=== PATIENT | male | born 1930 | race Hispanic/Latino ===

== ENCOUNTER 2017-04-01 15:35 | Emergency (ER) | payer MEDICARE, BC ==
[2017-04-01 15:46] VITALS: RESP 18; TEMP 97.9; BMI 23.0
--- NOTE | 2017-04-01 16:08 | ED PDOC ---
Arrival/HPI - General Chief Complaint: Chest Pain Time Seen by Provider: 04/01/17 15:49 Historian: Patient, Family (son) - History of Present Illness Narrative History of Present Illness (Text): 04/01/17 15:49 A 86 year old male, whose past medical history includes abdominal pain and dizziness, is accompanied by son and presents to the emergency department complaining of dizziness, nausea, and vomiting with associated chest discomfort. Patient states he was playing on the golf course with son earlier this afternoon and around 13:30 began experiencing symptoms. Chest discomfort began after leaving golf course and arriving home. Patient's son mentions patient has experienced this episode before but was not as worse as today. Patient denies of any fever, diarrhea, appetite changes (which he describes as fair), or any other complaints. He did not eat or drink anything abnormal that could have possibly caused symptoms. Also, patient has history of heart burn, however he states he does not believe these symptoms are related to it. Had an appendectomy in the past, and knee arthroplasty 5-6 months ago. Occupational Therapist Per Diem: Dr. Frederick Past Medical History - Provider Review Nursing Documentation Reviewed: Yes - Travel History Have you recently traveled outside [place] w/in the past 3 mons?: No - Past History Past History: Non-Contributing - Patient History Narrative Patient History: prior CABG - Infectious Disease Hx of Infectious Diseases: None - Tetanus Immunization Tetanus Immunization: Unknown - Cardiac Hx Cardiac Disorders: Yes - Neurological Hx Neurological Disorder: Yes Other/Comment: hydrocephalus - Endocrine/Metabolic Hx Endocrine Disorders: Yes Hx Diabetes Mellitus Type 2: Yes - Musculoskeletal/Rheumatological Hx Musculoskeletal Disorders: Yes Hx Degenerative Joint Disease: Yes - Psychiatric Hx Psychophysiologic Disorder: No Hx Substance Use: No - Surgical History Hx Open Heart Surgery: Yes Other/Comment: Hydrocephalus shunt Family/Social History - Physician Review Nursing Documentation Reviewed: Yes Family/Social History: No Known Family HX Smoking Status: Light Smoker < 10 Cigarettes Daily Hx Alcohol Use: Yes Frequency of alcohol use: Socially Hx Substance Use: No Allergies/Home Meds Allergies/Adverse Reactions: Allergies No Known Allergies Allergy (Verified 04/01/17 16:39) Review of Systems - Physician Review All systems were reviewed & negative as marked: Yes - Review of Systems Constitutional: absent: Fevers Cardiovascular: Chest Pain (chest discomfort associated with vomiting episodes) Gastrointestinal: Nausea, Vomiting. absent: Diarrhea, Appetite Changes Physical Exam Vital Signs Reviewed: Yes Vital Signs Temp Pulse Pulse Resp BP Pulse Ox 04/01/17 17:42 68 18 126/58 L 99 04/01/17 16:15 51 L 04/01/17 15:45 97.9 F 56 L 18 146/69 100 Temperature: Afebrile Blood Pressure: Normal Pulse: Regular Respiratory Rate: Normal Appearance: Positive for: Well-Appearing Pain Distress: None Mental Status: Positive for: Alert and Oriented X 3 Finger Stick Blood Glucose: 207 - Systems Exam Head: Present: Other (medial sternatary noted) Pupils: Present: PERRL Extroacular Muscles: Present: EOMI Conjunctiva: Present: Normal Mouth: Present: Moist Mucous Membranes Neck: Present: Normal Range of Motion Respiratory/Chest: Present: Clear to Auscultation, Good Air Exchange. No: Respiratory Distress, Accessory Muscle Use Cardiovascular: Present: Regular Rate and Rhythm, Normal S1, S2. No: Murmurs Abdomen: Present: Normal Bowel Sounds. No: Tenderness, Distention, Peritoneal Signs Back: Present: Normal Inspection Upper Extremity: Present: Normal Inspection. No: Cyanosis, Edema Lower Extremity: Present: Normal Inspection, Other (dry heeving). No: Edema Neurological: Present: GCS=15, CN II-XII Intact, Speech Normal Skin: Present: Warm, Dry, Normal Color. No: Rashes Psychiatric: Present: Alert, Oriented x 3, Normal Insight, Normal Concentration Medical Decision Making ED Course and Treatment: 04/01/17 15:52 Impression: 86 year old male with dizziness, nausea. and vomiting with associated chest discomfort. Plan: -- EKG -- Chest X-ray -- Labs -- Promethazine -- Urinalysis -- Reassess and disposition Progress Notes: 04/01/17 17:00 Reassessment Condition: Re-examined, Improved - Lab Interpretations Narrative Lab Interpretation (Text): 04/01/17 19:23 C/W mild dehydration Lab Results: 04/01/17 16:20 04/01/17 16:20 Lab Results 04/01/17 16:20: Sodium 141, Potassium 4.7, Chloride 105, Carbon Dioxide 25, Anion Gap 16, BUN 32 H, Creatinine 1.0, Est GFR ( Amer) > 60, Est GFR ( Non-Af Amer) > 60, Random Glucose 192 H, Calcium 9.7, Total Bilirubin 1.3, AST 27, ALT 31, Alkaline Phosphatase 74, Troponin I < 0.01, Total Protein 6.6, Albumin 4.2, Globulin 2.4, Albumin/Globulin Ratio 1.8, Amylase 68, Lipase 100 04/01/17 16:20: PT 11.0, INR 1.01, APTT 28.4 04/01/17 16:20: WBC 9.8, RBC 3.83, Hgb 12.2 L, Hct 38.0 L, MCV 99.2, MCH 31.9, MCHC 32.1, RDW 14.8 H, Plt Count 144, MPV 10.6, Gran % 72.4 H, Lymph % (Auto) 23.5, Craig % (Auto) 3.9, Eos % (Auto) 0.0 L, Baso % (Auto) 0.2, Gran # 7.12 H, Lymph # 2.3, Craig # 0.4, Eos # 0.0, Baso # 0.02 - RAD Interpretation Radiology Orders: 04/01/17 15:59 CHEST PORTABLE [RAD] Stat - EKG Interpretation EKG Interpretation (Text): 04/01/17 16:53 EKG demonstrates sinus chayo at 56 BPM,,occas multifocal PVC's.No acute STTW changes.No old EKG's for comparison - Medication Orders Current Medication Orders: Discontinued Medications Sodium Chloride (Sodium Chloride 0.9%) 1,000 mls @ 999 mls/hr IV .Q1H1M STA Stop: 04/01/17 18:13 Last Admin: 04/01/17 17:20 Dose: 999 mls/hr eMAR Start Stop Document 04/01/17 17:20 OCS (Rec: 04/01/17 17:38 OCS [facility]-[id number]) Intravenous Solution Start Date 04/01/17 Start Time 17:25 Promethazine HCl (Phenergan Inj) 25 mg IM STAT STA Stop: 04/01/17 16:01 Last Admin: 04/01/17 16:10 Dose: 25 mg IM Administration Charges Document 04/01/17 16:10 OCS (Rec: 04/01/17 16:38 OCS [id number]) Injection Site MAR Injection Site Right Arm Charges for Administration # of IM Administrations 1 - Scribe Statement The provider has reviewed the documentation as recorded by the Scribe Hanan Dabdi Provider Scribe Attestation: All medical record entries made by the Scribe were at my direction and personally dictated by me. I have reviewed the chart and agree that the record accurately reflects my personal performance of the history, physical exam, medical decision making, and the department course for this patient. I have also personally directed, reviewed, and agree with the discharge instructions and disposition. Disposition/Present on Arrival - Present on Arrival Any Indicators Present on Arrival: No History of DVT/PE: No History of Uncontrolled Diabetes: No Urinary Catheter: No History of Decub. Ulcer: No History Surgical Site Infection Following: None - Disposition Have Diagnosis and Disposition been Completed?: Yes Diagnosis: Dehydration symptoms Disposition: HOME/ ROUTINE Disposition Time: 16:35 Patient Plan: Discharge Patient Problems: Current Active Problems Problem Status Onset Dehydration symptoms Acute Condition: GOOD Discharge Instructions (ExitCare): Dehydration (ED) Print Language: MONTENEGRIN Prescriptions: Ondansetron ODT [Zofran ODT] 4 mg PO TID #7 odt Referrals: [facility] at [facility] [Outside] - Follow up with primary Forms: [employer] ([place]ian)
[2017-04-01 16:51] LABS: ALB/GLOB RATIO 1.8 (1.1-1.8); ALKALINE PHOSPHATASE 74 U/L (38-126); ALT/SGPT 31 U/L (7-56); AMYLASE 68 U/L (35-125); AST/SGOT 27 U/L (17-59); BILIRUBIN,TOTAL 1.3 mg/dL (0.2-1.3); BLOOD UREA NITROGEN 32 mg/dL (7-21); CALCIUM 9.7 mg/dL (8.4-10.5); CARBON DIOXIDE 25 mmol/L (21-33); CHLORIDE 105 mmol/L (98-107); GFR AFRICAN-AMERICAN > 60; GLUCOSE,RANDOM 192 mg/dL (70-110); LIPASE 100 U/L (23-300); POTASSIUM 4.7 mmol/L (3.6-5.0); SODIUM 141 mmol/L (132-148); TOTAL PROTEIN 6.6 g/dL (5.8-8.3)
[2017-04-01 16:56] LABS: BASO # 0.02 K/mm3 (0.0-2.0); BASO % 0.2 % (0.0-3.0); GRAN # 7.12 (1.4-6.5); GRAN % 72.4 % (50.0-68.0); LYMPH # 2.3 (1.2-3.4); LYMPH % 23.5 % (22.0-35.0); MEAN CELL VOLUME 99.2 fl (80.0-105.0); MEAN CORPUSCULAR HEMOGLOBIN 31.9 pg (25.0-35.0); MEAN CORPUSCULAR HGB CONC 32.1 g/dl (31.0-37.0); MEAN PLATELET VOLUME 10.6 fl (7.0-11.0); MONO # 0.4 (0.1-0.6); MONO % 3.9 % (1.0-6.0); RED CELL DISTRIBUTION WIDTH 14.8 % (11.5-14.5); WHITE BLOOD COUNT 9.8 10^3/ul (4.5-11.0)
[2017-04-01 16:59] LABS: INR 1.01 (0.93-1.08); PARTIAL THROMBOPLASTIN TIME 28.4 Seconds (25.1-36.5)
[2017-04-01 17:04] LABS: TROPONIN I < 0.01 ng/mL
[2017-04-01] MEDS ORDERED: Sodium Chloride 0.9% 1,000 ML IV STA (17:13)
[2017-04-01 17:43] VITALS: BP 126/58; PULSE 68; O2SAT 99
--- NOTE | 2017-04-01 20:39 | CARD ---
APPROVED REPORT EKG Measurement Heart [id number] [id number] <Conclusion> Sinus bradycardia with occasional premature ventricular complexes Incomplete right bundle branch block Inferior infarct, age undetermined Abnormal ECG
--- NOTE | 2017-04-02 09:13 | RAD ---
HISTORY: chest pain COMPARISON: No prior. FINDINGS: LUNGS: No active pulmonary disease. PLEURA: No significant pleural effusion identified, no pneumothorax apparent. CARDIOVASCULAR: CABG. Normal heart size. No congestive change. OSSEOUS STRUCTURES: No significant abnormalities. VISUALIZED UPPER ABDOMEN: Normal. OTHER FINDINGS: Right-sided ventriculoperitoneal catheter traversing the thorax. IMPRESSION: No active disease.
== END 2017-04-01 18:38 | disposition home or self-care (01) ==
LOC: ED 15:35
DX: E86.0 Dehydration (principal); E11.9 Type 2 diabetes mellitus without complications; F17.210 Nicotine dependence, cigarettes, uncomplicated
CPT/HCPCS: 71010; 80053; 82150; 82948; 83690; 84484; 85025; 85610; 85730; 93005; 96372; 99284; J2550; J7040